=== PATIENT | male | born 1965 | race Caucasian/White ===

== ENCOUNTER 2018-01-15 11:14 | Outpatient (CLI) | payer BC ==
--- NOTE | 2018-01-15 15:12 | XRAY Report ---
Procedure Date: 01/15/2018 Accession Number: [id number] / [id number] Procedure: XR - Shoulder 3 View LT CPT Code: FULL RESULT: EXAM: LEFT SHOULDER RADIOGRAPHY EXAM DATE: 01/15/2018 12:21 PM. CLINICAL HISTORY: L SHOULDER PAIN. COMPARISON: None. TECHNIQUE: 3 views. FINDINGS: Bones: Normal. No fracture or bone lesion. Joints: The glenohumeral and acromioclavicular joints are normal. Soft tissues: There is an approximately 10 x 20 mm calcification projecting above the humeral head, likely secondary to calcific tendinopathy of the rotator cuff. Soft tissues are otherwise unremarkable. IMPRESSION: Evidence of calcific tendinopathy at the rotator cuff. Otherwise unremarkable. RADIA
== END 2018-01-15 11:15 | disposition home or self-care (01) ==
LOC: DI 11:14
PROVIDERS: ATTEND Physician Assistant
DX: M75.32 Calcific tendinitis of left shoulder (principal)

== ENCOUNTER 2023-02-07 07:21 | Emergency (ER) | payer OTHER ==
[2023-02-07 07:33] VITALS: BP 208/98; O2SAT 96
--- NOTE | 2023-02-07 07:48 | ED Physician Documentation ---
PD HPI SKIN - Stated complaint Stated Complaint: LT HAND SWOLLEN,STUNG - Chief complaint Chief Complaint: Allergic Rx - History obtained from History obtained from: Patient - History of Present Illness Timing - onset: Yesterday (occured at work) Timing - details: Still present (worse swelling overnight to now involve wrist/hand/forearm. 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 Some swelling there initially but increased overnight. swelling from elbow down to fingers today.) Quality / character: Itchy, Swelling. No: Vesicular Improved by: Other (has used some ice to area and took Ibuproen last night.) Associated symptoms: No: Fever, Myalgias, Facial swelling, Dyspnea, N/V/D Contributing factors: Insect bite /sting Similar symptoms before: Has not had sx before (has had several stings the past week with just minor local swelling.) Recently seen: Not recently seen Review of Systems Constitutional: denies: Fever, Chills Cardiac: denies: Chest pain / pressure Respiratory: denies: Dyspnea GI: denies: Nausea, Vomiting PD PAST MEDICAL HISTORY - Past Medical History Cardiovascular: None Respiratory: None Endocrine/Autoimmune: None - Present Medications Home Medications: Ambulatory Orders Medication Instructions Recorded Confirmed Cetirizine [ZyrTEC] 10 mg PO BID #15 tablet 02/07/23 dexAMETHasone [Decadron] 4 mg PO DAILY #5 tablet 02/07/23 - Allergies Allergies/Adverse Reactions: Allergies Allergy/AdvReac Type Severity Reaction Status Date / Time No Known Drug Allergies Allergy Verified 02/07/23 07:29 PD ED PE NORMAL - Vitals Vital signs reviewed: Yes - General General: Alert and oriented X 3, Well developed/nourished - HEENT HEENT: Pharynx benign - Cardiac Cardiac: RRR, No murmur - Respiratory Respiratory: No respiratory distress, Clear bilaterally - Derm Derm: Normal color, Warm and dry - Extremities Extremities: Other (left dorsum hand with small local bumps/swelling c/w sting. The whole forearm, wrist, hand, fingers with swelling. Feeling of tightness in forearm. Normal pulses at wrist, cap refill in nailbeds and sensation in fingers. Stiff for hand/finger movement due to swelling in hand/wrist. Mild pain only. ) Results - Vitals Vitals: Vital Signs - 24 hr 02/07/23 07:24 Temperature 37.2 C Heart Rate 96 Respiratory 20 Rate Blood Pressure 208/98 H O2 Saturation 96 Oxygen O2 Source Room air PD Medical Decision Making - ED course Complexity details: considered differential (lcal reaction to bee stings, without diffuse reaction. However significant local swelling even up to elbow. No compartment syndrome symptoms at this time, but discussed patient the signs to return for. ), d/w patient Departure - Departure Disposition: 01 Home, Self Care Clinical Impression: Bee sting reaction Condition: Stable Record reviewed to determine appropriate education?: Yes Instructions: ED Bite Insect Prescriptions: dexAMETHasone [Decadron] 4 mg PO DAILY #5 tablet Cetirizine [ZyrTEC] 10 mg PO BID #15 tablet Comments: Elevate and rest the hand and arm today. Minimal use of it. Cool towels may help the swelling as well. You are given a dose of Decadron steroid for the inflammation. Also antihistamine such as long-acting cetirizine/Zyrtec are helpful as well. You can add short acting like Benadryl every 4-6 hours if needed for itching or swelling. The Benadryl can make you sleepy so be careful of working/power tools etc. At this point it would seem like a good local response to the bee sting venom. You do not have generalized symptoms to suggest anaphylaxis or need to carry EpiPen per se. I would anticipate the swelling to peak today and go down over the next few days. Concern would be if you develop too much pressure within the wrist or forearm if it starts affecting blood flow, nerves or use. Return if numb in the fingers or hand, dusky color or intractable pain as it may be a sign of too tight of pressure in the deeper layers of the forearm. Otherwise he will be presumably some degree of pain through the day and he can use Tylenol or ibuprofen if nee ded. I sent a prescription to [facility] in [place]. Forms: PCP List
[2023-02-07] MEDS ORDERED: CETIRIZINE 10 MG TABLET PO STA (07:50)
[2023-02-07] MEDS ORDERED: diphenhydrAMINE 25 MG CAPSULE PO STA (07:50)
[2023-02-07] MEDS ORDERED: dexAMETHasone 4 MG TABLET PO STA (07:50)
== END 2023-02-07 08:28 | disposition home or self-care (01) ==
LOC: ED 07:21
DX: T63.441A Toxic effect of venom of bees, accidental (unintentional), initial encounter (principal); M79.89 Other specified soft tissue disorders; Y92.9 Unspecified place or not applicable
CPT/HCPCS: 99282; 99283; A9270; J8540

== ENCOUNTER 2023-09-11 16:34 | Emergency (ER) | payer OTHER ==
[2023-09-11 16:47] VITALS: O2SAT 98
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
[2023-09-11] MEDS: IBUPROFEN 800 MG TABLET PO STA (16:58)
[2023-09-11] MEDS: LORazepam 1 MG TABLET PO STA (17:00)
--- NOTE | 2023-09-11 18:03 | CT Report ---
PROCEDURE: Chest WO INDICATIONS: chest wall inj TECHNIQUE: A CT scan of the chest was performed. Intravenous contrast media was not administered. Images were re corded and evaluated at appropriate window settings. Reformats: axial MIP of the chest, coronal and s agittal. For radiation dose reduction, the following was used: automated exposure control, adjustment of mA and/or kV according to patient size. COMPARISON: None. FINDINGS: Image quality: Diagnostic. Chest wall and lower neck: No significant right chest wall contusion overlying a right lateral rib fr acture. No suspicious soft tissue mass. Normal thyroid gland. No axillary or supraclavicular adenopat hy by size. Lungs and pleura: No pneumothorax, pulmonary contusion, or pleural effusion. Mediastinum: No retrosternal hematoma. Minimal subcutaneous contusion along the left superior sternum . Heart size is normal. No pericardial effusion. No large vessel abnormality. No mediastinal adenopat hy by size criteria. Bones: There is an acute nondisplaced right seventh lateral rib fracture. (Series 4 image 77). There is a proximal sternal fracture with minimal comminution best seen on the sagittal series 8 image 103. Upper Abdomen: No CT evidence of acute trauma. IMPRESSION: Nondisplaced, slightly comminuted proximal sternal fracture without underlying substernal hematoma. Nondisplaced right seventh lateral rib fracture. No CT evidence of underlying chest trauma. Reviewed by: Hanna Edmondson MD on 09/11/2023 6:01 PM PDT Approved by: Hanna Edmondson MD on 09/11/2023 6:01 PM PDT Station ID: [id number]
[2023-09-11 18:36] VITALS: BP 222/104
== END 2023-09-11 18:32 | disposition home or self-care (01) ==
LOC: ED 16:34
DX: S22.31XA Fracture of one rib, right side, initial encounter for closed fracture (principal); S22.22XA Fracture of body of sternum, initial encounter for closed fracture; V53.5XXA Driver of pick-up truck or van injured in collision with car, pick-up truck or van in traffic accident, initial encounter; Y92.410 Unspecified street and highway as the place of occurrence of the external cause; F17.200 Nicotine dependence, unspecified, uncomplicated
CPT/HCPCS: 71250; 99284; A9270

== ENCOUNTER 2023-10-03 08:44 | Outpatient (CLI) | payer OTHER ==
[2023-10-03 08:55] LABS: BASOPHILS # (AUTO) 0.1 10^3/uL (0.0-0.1); BASOPHILS % (AUTO) 0.5 %; EOSINOPHILS # (AUTO) 0.3 10^3/uL (0.0-0.7); EOSINOPHILS % (AUTO) 2.6 %; HCT - HEMATOCRIT 47.5 % (42.0-52.0); HGB - HEMOGLOBIN 15.8 g/dL (14.0-18.0); LYMPHOCYTES # (AUTO) 2.6 10^3/uL (1.5-3.5); LYMPHOCYTES % (AUTO) 25.3 %; MEAN CORPUSCULAR HEMOGLOBIN 30.9 pg (27.0-31.0); MEAN CORPUSCULAR HGB CONC 33.3 g/dL (32.0-36.0); MEAN CORPUSCULAR VOLUME 92.8 fL (80.0-94.0); MEAN PLATELET VOLUME 10.4 fL (7.4-11.4); MONOCYTES # (AUTO) 0.8 10^3/uL (0.0-1.0); MONOCYTES % (AUTO) 8.3 %; NEUTROPHILS # (AUTO) 6.4 10^3/uL (1.5-6.6); NEUTROPHILS % (AUTO) 62.9 %; PLT - PLATELET COUNT 302 10^3/uL (130-450); RED BLOOD COUNT 5.12 10^6/uL (4.70-6.10); WHITE BLOOD COUNT 10.2 x10^3/uL (4.8-10.8)
[2023-10-03 09:09] LABS: ALBUMIN 4.2 g/dL (3.2-5.5); ALBUMIN/GLOBULIN RATIO 1.4 (1.0-2.2); ALKALINE PHOSPHATASE 127 IU/L (42-121); ALT ALANINE AMINOTRANSFERASE 17 IU/L (10-60); AST ASPARTATE AMINOTRANSFERASE 12 IU/L (10-42); BILIRUBIN,TOTAL 0.6 mg/dL (0.2-1.0); BUN - BLOOD UREA NITROGEN 15 mg/dL (6-20); CALCIUM 9.4 mg/dL (8.5-10.3); CARBON DIOXIDE - CO2 29 mmol/L (21-32); CHLORIDE 104 mmol/L (101-111); CHOL/HDL RATIO 5.3 (<5.0); CHOLESTEROL 202 mg/dL; GFR - MDRD 77 (>89); GLUCOSE 108 mg/dL (74-104); HDL CHOLESTEROL 38 mg/dL; LDL CHOLESTEROL,CALCULATED 134 mg/dL; LDL/HDL RATIO 3.5 (<3.6); POTASSIUM 3.8 mmol/L (3.5-4.5); SODIUM 140 mmol/L (135-145); TOTAL PROTEIN 7.1 g/dL (6.4-8.9); TRIGLYCERIDES 148 mg/dL (48-352); VLDL CHOLESTEROL 30 mg/dL
[2023-10-03 09:23] LABS: THYROID STIMULATING HORMONE 2.71 uIU/mL (0.34-5.60)
== END 2023-10-03 08:45 | disposition home or self-care (01) ==
LOC: LAB 08:44
PROVIDERS: ATTEND Physician Assistant
DX: I16.0 Hypertensive urgency (principal); F41.9 Anxiety disorder, unspecified; Z13.220 Encounter for screening for lipoid disorders
CPT/HCPCS: 36415; 80053; 80061; 83721; 84443; 85025